=== PATIENT | male | born 1950 | race Caucasian/White ===

== ENCOUNTER → 2017-04-15 | Outpatient (CLI) | payer OTHER ==
--- NOTE | 2017-04-15 13:03 | REP ---
Clinical: Lung screening. History smoking. Comparison: 07/27/2013 Technique: Axial low-dose noncontrast images from the thoracic inlet to the upper abdomen using lung screening technique. Findings: The lung nelson are well-aerated and demonstrate moderate COPD/ emphysematous changes with minimal scattered scarring and mild bronchiectasis. No consolidation, significant nodule or mass lesion is appreciated. No pleural effusion/reaction or pneumothorax. Tracheobronchial tree is patent. Mediastinum demonstrates atherosclerotic changes of the coronary arteries without cardiomegaly. Impression: Lung-RADS category I. No nodule or suspicious abnormality. Moderate COPD/emphysematous changes with scattered scarring and bronchiectasis. Signed by Los Freed MD 04/15/2017 12:54 P
== END ==
LOC: M RAD 10:03
DX: J44.9 Chronic obstructive pulmonary disease, unspecified (principal)